=== PATIENT | male | born 2005 | race Hispanic/Latino ===

== ENCOUNTER 2025-02-26 12:18 | Emergency (ER) | payer SELFPAY ==
[~2025-02-26] VITALS: Ht 167.6 cm; Wt 97.7 kg
--- NOTE | 2025-02-26 12:31 | ERN ---
General Chief Complaint: Abdominal Pain Stated Complaint: ABD PAIN Time Seen by MD: 12:12 Source: patient History of Present Illness Initial Comments Patient is a 19-year-old boy coming in complaining of right upper quadrant pain. Patient states that the pain began yesterday. He states that the pain is localized to the right upper quadrant area causes nauseousness when the pain intensifies. Allergies: Coded Allergies: No Known Drug Allergies (Unverified Allergy, Unknown, 02/26/25) Past Medical History Past Medical History: No Pertinent History Past Surgical History: None ROS Dictation CONSTITUTIONAL: No chills, no fever, no weakness, no diaphoresis, no malaise. HEAD/FACE: No signs of trauma. EENT: No eye pain, no blurred vision, no tearing, no double vision, no ear p ain, no ear discharge, no nose pain, no nasal congestion, no throat pain, no throat swelling, no mouth pain. RESPIRATORY: No cough, no orthopnea, no SOB, no stridor, no wheezing. CARDIOVASCULAR: No chest pain, no edema, no palpitations, no syncope. GASTROINTESTINAL/ABDOMINAL: abdominal pain, no constipation, no diarrhea, nausea, no vomiting. GENITOURINARY: No abnormal discharge, no dysuria, no frequent urination, no hematuria. No complaints of pain in the genitals. MUSCULOSKELETAL: No back pain, no gout, no joint pain, no joint swelling, no muscle pain, no muscle stiffness, no neck pain. INTEGUMENTARY: No change in color, no change in hair/nails, no dryness, no lesion, no lumps, no rash. NEUROLOGICAL/PSYCH: No anxiety, not depressed, no emotional problem, no headache, no numbness, no pre-existing deficit, no history of seizures, no tremors, no weakness. HEMATOLOGIC/LYMPHATIC: Not anemic, no history of blood clots, no apparent bleeding, no bruising, glands not swollen. All Systems Negative, Except as Noted. Physical Exam Physical Exam Dictation VITAL SIGNS: Reviewed. GENERAL APPEARANCE: Alert, oriented x3, no acute distress, obese. HEAD AND FACE: Non-traumatic. EYES: PERRL, pink conjunctivas, eyelid no trauma, anterior chamber clear. EARS: Pinnas intact and no signs of trauma or erythema. Ear canals clear and no discharge. TMs no erythema. NOSE: No discharge, no bleeding. OROPHARYNX: Mouth normal, teeth no caries, tongue pink. Pharynx clear, no er ythema. Tonsils no exudates, no abscesses noted. Mucous membrane moist. NECK: Supple, non-tender, no thyromegaly, no masses, no JVD, no bruits. BREAST: Deferred. CHEST: No tenderness, no crepitus, no paradoxical movement, no retractions. LUNGS: Clear, well-ventilated, symmetric, no rales, no wheezing, no rhonchi, no stridor, good breath sounds bilaterally. HEART: Regular rate, regular rhythm, no murmur, no gallops. VASCULAR: No peripheral edema. ABDOMEN: Soft, positive bowel sounds, nondistended, no guarding, right upper quadrant tenderness on palpation, no rebound, no masses no hepatomegaly, no splenomegaly, no Alicea's sign, no hernias. RECTAL: Deferred. GENITAL: Deferred. NEUROLOGICAL: Normal speech, gross motor function intact, gross sensory function intact. MUSCULOSKELETAL: Neck nontender, full range of motion, back nontender, full range of motion. EXTREMITIES: Nontender, full range of motion. SKIN: Color pink, dry, no turgor, no rash, no lacerations, no abrasions, no contusions. LYMPHATICS: Deferred. Results Laboratory and Microbiology Lab and Micro Result Laboratory Tests Test 02/26/25 12:33 02/26/25 12:35 Urine Color YELLOW (YELLOW) Urine Appearance CLEAR (CLEAR) Urine pH 6.0 (5.0-8.0) Urine Specific [place] 1.032 (1.001-1.031) Urine Protein 10 mg/dL (NEGATIVE) H Urine Glucose (UA) NEGATIVE mg/dL (NEGATIVE) Urine Ketones NEGATIVE mg/dL (NEGATIVE) Urine Occult Blood NEGATIVE (NEGATIVE) Urine Nitrate NEGATIVE (NEGATIVE) Urine Bilirubin NEGATIVE mg/dL (NEGATIVE) Urine Urobilinogen 0.2 mg/dL (0.2-1.0) Urine Leukocyte Esterase NEGATIVE [place]/uL Urine RBC 0-1 /HPF (0-1) Urine WBC 0-1 /HPF (0-1) Urine Squamous Epithelial Cells RARE /HPF (0-2) Urine Bacteria RARE /HPF (None Seen) White Blood Count 6.3 K/uL (4.8-10.8) Red Blood Count 5.39 MIL/uL (4.50-6.20) Hemoglobin 15.1 g/dL (14.0-18.0) Hematocrit 45.7 % (42-54) Mean Corpuscular Volume 84.8 fL (80-100) Mean Corpuscular Hemoglobin 28.0 pg (27.0-33.0) Mean Corpuscular Hemoglobin Concent 33.0 g/dL (32.0-36.0) Red Cell Distribution Width 12.4 % (11.0-15.5) Platelet Count 307 K/uL (130-400) Mean Platelet Volume 10.4 fL (7.5-10.5) Immature Granulocyte % (Auto) 0.3 % (0-1) Neutrophils (%) (Auto) 51.5 % (40.0-77.0) Lymphocytes (%) (Auto) 37.0 % (21.0-51.0) Monocytes (%) (Auto) 9.8 % (3.0-13.0) Eosinophils (%) (Auto) 0.8 % (0.0-8.0) Basophils (%) (Auto) 0.6 % (0.0-5.0) Neutrophils # (Auto) 3.3 K/uL (1.8-7.7) Lymphocytes # (Auto) 2.3 K/uL (1.0-4.8) Monocytes # (Auto) 0.6 K/uL (0.1-1.0) Eosinophils # (Auto) 0.05 K/uL (0.00-0.70) Basophils # (Auto) 0.04 K/uL (0.00-0.20) Absolute Immature Granulocyte (auto 0.02 K/uL (0-1) Nucleated Red Blood Cells 0.0 % (0.0-0.19) Sodium Level 138 mmol/L (136-145) Potassium Level 3.8 mmol/L (3.5-5.1) Chloride Level 101 mmol/L (101-111) Carbon Dioxide Level 29 mmol/L (21-32) Blood Urea Nitrogen 11 mg/dL (7-18) Creatinine 1.0 mg/dL (0.5-1.3) Glomerular Filtration Rate Calc 111 mL/min (>90) Random Glucose 96 mg/dL (70-105) Total Calcium 9.2 mg/dL (8.5-10.1) Total Bilirubin 0.5 mg/dL (0.2-1.0) Aspartate Amino Transf (AST/SGOT) 118 U/L (10-37) H Alanine Aminotransferase (ALT/SGPT) 77 U/L (12-78) Alkaline Phosphatase 110 U/L (50-136) Total Protein 7.8 g/dL (6.0-8.3) Albumin 4.2 g/dL (3.5-5.0) Lipase 23 U/L (16-77) Labs Reviewed?: Yes EKG/XRAY/US/CT/MRI Ultrasound Comment IMAGING REPORT Signed PATIENT: ROBERT SALMON MR#: [id number] : 2005 SEX: M AGE: 19 LOCATION: [facility] ORDER 28 STATUS: REG REPORT#: [id number] SERVICE 28 REASON: Adominal Pain ORDERING PHYSICIAN: MONSE BOLAOÑS MD PROCEDURE: [id number] - US ABDOMINAL RUQ\LTD EXAM:US Abdomen, Right Upper Quadrant. CLINICAL HISTORY: Abdominal pain. TECHNIQUE: Right upper quadrant sonography performed with image documentation. COMPARISON: None provided. FINDINGS: Liver Measures approximately 15 cm in length. Echogenicity within normal limits. No focal hepatic lesion identified. Main portal vein demonstrates hepatopetal flow measuring 19 cm/s. Gallbladder Gallbladder wall measures 2 mm. No gallstones, sludge, or pericholecystic fluid. No sonographic evidence of cholecystitis. Common Bile Duct CBD diameter 3 mm; within normal limits. Pancreas Pancreatic head is partially visualized; remainder obscured by bowel gas. No abnormality seen in the visualized portion. Right Kidney Measures 8.2 ??? 4.4 ??? 3.6 cm. Normal cortical echogenicity and contour. No hydronephrosis, mass, or calculus. IMPRESSION: 1. No acute intraabdominal pathology. /[place] DICTATED BY: MICHELLE JOSHUA MD DATE: 02/26/251550 ELECTRONICALLY SIGNED BY: MICHELLE JOSHUA MD DATE: 02/26/251550 MDM MDM: Differential diagnosis:. , ABDOMINAL PAIN, CHOLECYSTITIS, Rationale: Tests considered and ordered secondary to shared decision making include: Previous outside records reviewed: Old ER visits. Risk of complication and/or morbidity or mortality of patient management: None Medications-Per medication reconciliation Need for hospitalization: Patient does not meet criteria for hospitalization. Need for emergency major/minor surgery: No There are no social concerns with this patient. PATIENT IS A 19-YEAR-OLD MALE COMING IN COMPLAINING OF RIGHT UPPER QUADRANT PAIN ULTRASOUND DID NOT DISCLOSE ACUTE FINDINGS. PATIENT WILL BE DISCHARGED WITH A DIAGNOSIS OF GERD AND GASTRITIS. PATIENT DID RECEIVE GI COCKTAIL STATES HIS SYMPTOMS HAVE IMPROVED. ED Course Orders Procedure Category Date Status Time Cbc With Differential LAB 02/26/25 Complete 12:29 Comprehensive LAB 02/26/25 Complete Metabolic Panel 12:29 Urinalysis Profile LAB 02/26/25 Complete 12:29 Us Abdominal Ruq\Ltd US 02/26/25 Resulted 12:29 Lipase LAB 02/26/25 Complete 12:29 Lidocaine Hcl 2% PHA 02/26/25 Complete Viscous (Lidocaine Hcl 15:30 Mag/Alum/Simeth 30ml PHA 02/26/25 Complete (Maalox Plus 30ml) 15:30 Current Medications Medications (Trade) Dose Ordered Sig/Bia Route PRN Reason Start Time Stop Time Status Last Admin Dose Admin Al Hydroxide/Mg Hydroxide (MAALox PLUS 30ML) 30 ml ONCE ONCE PO 02/26/25 15:30 02/26/25 15:31 DC 02/26/25 15:21 Lidocaine HCl (Lidocaine HCl 2% Viscous) 10 ml ONCE ONCE PO 02/26/25 15:30 02/26/25 15:31 DC 02/26/25 15:21 Vital Signs Date Time Temp Pulse Resp B/P (MAP) Pulse Ox O2 Delivery O2 Flow Rate FiO2 02/26/25 15:24 98.4 69 17 106/56 99 Room Air* 0 02/26/25 14:23 98.4 73 16 114/69 99 Room Air* 0 02/26/25 13:18 98.4 69 12 131/79 99 Room Air* 0 02/26/25 12:23 97.3 74 18 123/76 99 Room Air 0 DX & DISP Disposition: Discharge Departure Impression: Primary Impression: Gastritis Additional Impression: GERD (gastroesophageal reflux disease) Condition: Stable Scripts Pantoprazole Sodium (Protonix) 40 Mg Ectab 1 TAB PO DAILY for 30 Days, #30 TAB 0 Refills Prov: MONSE BOLAÑOS MD 02/26/25 Additional Instructions: FOLLOW-UP WITH PRIMARY CARE PROVIDER IN 1 TO 2 DAYS. TAKE MEDICATIONS DIRECTED HERE IN THE EMERGENCY ROOM. OKAY TO CONTINUE HOME MEDICATIONS UNLESS OTHERWISE DISCUSSED DURING YOUR VISIT IN THE EMERGENCY ROOM TODAY. RETURN TO YOUR NEAREST EMERGENCY ROOM IF SYMPTOMS WORSEN OR IF THERE IS NO IMPROVEMENT. CALL 911 IF YOU NEED IMMEDIATE ASSISTANCE. TAKE TYLENOL FLBP-IFN-WBRGRAD NEEDED AND IF NO CONTRAINDICATIONS ARE PRESENT. INCREASE ORAL HYDRATION. A WOUND CULTURE OR URINE CULTURE WAS ORDERED HERE IN THE EMERGENCY ROOM DEPARTMENT PLEASE FOLLOW-UP WITH PRIMARY CARE PROVIDER AND ADVISE THEM TO GET REPORTS FROM OUR FACILITY. IF YOU HAD ANY ADALI WRAP/SPLINTS THAT WERE APPLIED HERE, PLEASE DO NOT REMOVE THEM UNTIL YOU SEE YOUR PRIMARY CARE OR SPECIALTY. REFERRALS: Referrals: [facility] MD Time of Disposition: 15:34 MONSE BOLAÑOS MD Feb 26, 2025 12:31
[2025-02-26 12:43] LABS: IMMATURE GRANULOCYTE ABSOLUTE 0.02 K/uL (0-1); NUCLEATED RED BLOOD CELLS 0.0 % (0.0-0.19); PLATELET COUNT (AUTO) 307 K/uL (130-400); RED BLOOD CELL COUNT(AUTO) 5.39 MIL/uL (4.50-6.20); RED CELL DISTRIBUTION WIDTH 12.4 % (11.0-15.5); WHITE BLOOD COUNT (AUTO) 6.3 K/uL (4.8-10.8)
[2025-02-26 12:47] LABS: APPEARANCE,URINE CLEAR (CLEAR); GLUCOSE, URINE (UA) NEGATIVE (NEGATIVE); LEUKOCYTE ESTERASE ,URINE NEGATIVE Leu/uL (NEGATIVE); NITRATE,URINE NEGATIVE (NEGATIVE); OCCULT BLOOD,URINE NEGATIVE (NEGATIVE)
[2025-02-26 12:49] LABS: ADD UA MICROSCOPIC YES
[2025-02-26 12:51] LABS: SQUAMOUS EPITHELIAL CELL,UR RARE /HPF (0-2)
[2025-02-26 12:52] LABS: CREATININE 1.0 mg/dL (0.5-1.3); GLOMERULAR FILTR. RATE CALC 111.0 mL/min (>90); GLUCOSE,RANDOM 96.0 mg/dL (70-105); SODIUM SERUM 138.0 mmol/L (136-145); UREA NITROGEN, BLOOD 11.0 mg/dL (7-18)
[2025-02-26 12:57] LABS: ASPARTATE AMINOTRANSFERASE 118.0 U/L (10-37); TOTAL PROTEIN, SERUM 7.8 g/dL (6.0-8.3)
--- NOTE | 2025-02-26 14:52 | HMCIMG ---
EXAM:US Abdomen, Right Upper Quadrant. CLINICAL HISTORY: Abdominal pain. TECHNIQUE: Right upper quadrant sonography performed with image documentation. COMPARISON: None provided. FINDINGS: Liver Measures approximately 15 cm in length. Echogenicity within normal limits. No focal hepatic lesion identified. Main portal vein demonstrates hepatopetal flow measuring 19 cm/s. Gallbladder Gallbladder wall measures 2 mm. No gallstones, sludge, or pericholecystic fluid. No sonographic evidence of cholecystitis. Common Bile Duct CBD diameter 3 mm; within normal limits. Pancreas Pancreatic head is partially visualized; remainder obscured by bowel gas. No abnormality seen in the visualized portion. Right Kidney Measures 8.2 ??? 4.4 ??? 3.6 cm. Normal cortical echogenicity and contour. No hydronephrosis, mass, or calculus. IMPRESSION: 1. No acute intraabdominal pathology. /[place]
[2025-02-26] MEDS: LIDOCAINE HCL 2% VISCOUS 15 ML UDCUP PO ONE (15:21)
[2025-02-26] MEDS: MAG/ALUM/SIMETH 30 ML UDCUP PO ONE (15:21)
[2025-02-26 15:24] VITALS: BP 106/56; PULSE 69; RESP 17; TEMP 98.4; O2SAT 99
[2025-02-26] MEDS ORDERED: PANT40TA55 PO (15:34)
== END 2025-02-26 15:50 | disposition home or self-care (01) ==
LOC: EDH 12:18
DX: K29.70 Gastritis, unspecified, without bleeding (principal); K21.9 Gastro-esophageal reflux disease without esophagitis
CPT/HCPCS: 36415; 76705; 80053; 81001; 83690; 85025; 99284